=== PATIENT | male | born 1990 | race Caucasian/White ===

== ENCOUNTER 2025-10-14 01:21 | Emergency (ER) | payer OTHER ==
[~2025-10-14] VITALS: Ht 182.9 cm; Wt 90.7 kg
[2025-10-14] MEDS ORDERED: MORPHINE SULFATE INJ 4 MG/ML DISP.SYRIN ONE (01:48)
[2025-10-14] MEDS ORDERED: ONDANSETRON HCL/PF 4 MG/2 ML VIAL ONE (01:48)
[2025-10-14] MEDS: ONDANSETRON HCL/PF 4 MG/2 ML VIAL IVP ONE (01:54)
[2025-10-14] MEDS: MORPHINE SULFATE INJ 2 MG/ML DISP.SYRIN IV ONE (01:54)
[2025-10-14] MEDS: IV NS 0.9% 1,000 ML BAG IV ONE (01:54)
[2025-10-14 01:59] LABS: PLATELET COUNT (AUTO) 246 K/uL (150-450); RED BLOOD CELL COUNT(AUTO) 4.92 MIL/uL (4.5-6.0); RED CELL DISTRIBUTION WIDTH 12.4 % (11.5-15.0); WHITE BLOOD COUNT (AUTO) 4.9 K/uL (4.3-11.0)
[2025-10-14 02:00] LABS: APPEARANCE,URINE CLEAR (CLEAR); BLOOD, URINE NEGATIVE Ery/uL (NEGATIVE); LEUKOCYTE ESTERASE ,URINE NEGATIVE (NEGATIVE); NITRITE, URINE NEGATIVE (NEGATIVE); UGLUCOSE NEGATIVE (NEGATIVE)
[2025-10-14 02:04] LABS: CALCIUM, SERUM 8.9 mg/dL (8.5-10.1); CREATININE 0.9 mg/dL (0.6-1.3); SODIUM SERUM 141 mmol/L (136-145); UREA NITROGEN, BLOOD 13 mg/dL (7-18)
[2025-10-14 02:10] LABS: ASPARTATE AMINOTRANSFERASE 22 U/L (15-37); TOTAL PROTEIN, SERUM 7.5 g/dL (6.4-8.2)
[2025-10-14 03:39] VITALS: BP 125/68; TEMP 97.7; O2SAT 99
== END 2025-10-14 03:39 | disposition home or self-care (01) ==
LOC: ER 01:25
DX: K80.70 Calculus of gallbladder and bile duct without cholecystitis without obstruction (principal)
CPT/HCPCS: 99285; 96374; 76705; 71045; 96361; 96375; 93005; 85025; 80048; 83690; 80076; 81003; 36415; 84484; J2270; J2405; J7030